=== PATIENT | female | born 1975 | race Caucasian/White ===

== ENCOUNTER → 2016-10-02 | Outpatient (CLI) | payer BC ==
--- NOTE | 2016-10-06 14:41 | MM ---
Reason for exam: screening (asymptomatic). Last mammogram was performed 6 months ago. History: Family history of breast cancer in sister. Benign US biopsy breast VAD RT of the right breast, October 11, 2015. Benign US LT VAD breast biopsy of the left breast, August 31, 2013. Took hormonal contraceptives for 3 years beginning at age 16. Physical Findings: A clinical breast exam by your physician is recommended on an annual basis and results should be correlated with mammographic findings. MG 3D Screening Mammo W/Cad Bilateral CC and MLO view(s) were taken. Prior study comparison: April 13, 2016, right breast MG 3d diag mammo w/cad RT. September 30, 2015, bilateral MG 3d screening mammo w/cad. The breast tissue is extremely dense which could obscure a lesion on mammography. Previous mammotome biopsy within the right and laft breast. No significant changes when compared with prior studies. ASSESSMENT: Benign, BI-RAD 2 RECOMMENDATION: Routine screening mammogram of both breasts in 1 year.
== END | disposition home or self-care (01) ==
LOC: RADMAMWWP 13:13
PROVIDERS: ATTEND Obstetrics & Gynecology
DX: Z12.31 Encounter for screening mammogram for malignant neoplasm of breast (principal); Z80.3 Family history of malignant neoplasm of breast
CPT/HCPCS: 77063; G0202

== ENCOUNTER 2017-01-18 18:12 | Observation (INO) | payer BC ==
[2017-01-18 18:34] VITALS: RESP 16
[2017-01-18] MEDS ORDERED: NITROGLYCERIN OINT 1 INCH/GM PACKET TOPICAL STA (19:12)
[2017-01-18] MEDS ORDERED: ASPIRIN 81 MG PO STA (19:12)
--- NOTE | 2017-01-18 19:16 | ED ---
Chest Pain HPI - General Chief Complaint: Chest Pain Stated Complaint: CHEST PAIN Time Seen by Provider: 01/18/17 19:01 Source: patient Mode of arrival: wheelchair Limitations: no limitations - History of Present Illness Initial Comments: This 41-year-old white female presents with a complaint of some left sided lower chest pain which started this morning. It then moved into the midsternal region. It is described more as a sharp pain. This afternoon she developed some dizziness as well as some left arm numbness. She denies any shortness of breath. She denies any history of cardiac disease. She apparently has a remote history of a stress test. She denies any history of DVT or PE. She was working out last week and developed some pain behind her left knee and is following up with orthopedics for this. She denies any calf pain or swelling. No other complaints or modifying factors. She denies any possibility of as she's had a tubal ligation. - Related Data Home Medications Medication Instructions Recorded Confirmed Lansoprazole [Prevacid] 30 mg PO DAILY 03/21/14 01/18/17 Simvastatin [Zocor] 80 mg PO HS 03/21/14 01/18/17 ALPRAZolam [Xanax] 0.25 mg PO DAILY PRN 01/18/17 01/18/17 Hydrochlorothiazide [Hydrodiuril] 25 mg PO DAILY 01/18/17 01/18/17 Lisinopril [Zestril] 5 mg PO DAILY 01/18/17 01/18/17 Zolpidem Tartrate [Ambien] 10 mg PO HS 01/18/17 01/18/17 Allergies Allergy/AdvReac Type Severity Reaction Status Date / Time Sulfa (Sulfonamide Allergy Rash/Hives Verified 01/18/17 19:22 Antibiotics) bupropion HCl AdvReac Altered Verified 01/18/17 19:22 [From Wellbutrin] Mental Status Review of Systems ROS Statement: Those systems with pertinent positive or pertinent negative responses have been documented in the HPI. ROS Other: All systems not noted in ROS Statement are negative. Past Medical History Past Medical History: No Reported History, Hyperlipidemia, Hypertension Additional Past Medical History / Comment(s): KIDNEY STONES; History of Any Multi-Drug Resistant Organisms: None Reported Past Surgical History: Appendectomy, Section, Hernia Repair Additional Past Surgical History / Comment(s): gastric bypass, (R) ankle ORIF. Past Psychological History: Depression Smoking Status: Never smoker Past Alcohol Use History: Occasional Past Drug Use History: None Reported General Exam - General Exam Comments Initial Comments: GENERAL: The patient is well nourished and well hydrated. VITAL SIGNS: Heart rate, blood pressure, respiratory rate reviewed as recorded in nurse's notes. EYES: Pupils are round and reactive. Extraocular movements are intact. No conjunctival / lid redness or swelling. ENT: No external evidence of injury, swelling, or ecchymosis. Airway is patent. Throat is clear. NECK: Nontender. No swelling or evidence of injury. No subcutaneous emphysema. Trachea is midline. No thyroid mass. HEART: Regular rate and rhythm. Good peripheral pulses. No reproducible chest tenderness. LUNGS/CHEST: Breath sounds clear and equal bilaterally. No rales, rhonchi, or wheezes. No ecchymosis, subcutaneous emphysema, or tenderness. ABDOMEN: Abdomen soft without tenderness. No palpable masses or organomegaly. No peritoneal signs. No abdominal wall swelling or ecchymosis. EXTREMITIES: There is some mild tenderness noted to the medial aspect of the left knee. There is a positive Nazanin sign. Normal muscle tone and function. No thoracolumbar tenderness. NEUROLOGIC: Sensation is grossly intact. Cranial nerve exam reveals face is symmetrical, tongue is midline, speech is clear. SKIN: No abrasions or ecchymosis is noted. No induration or masses noted. PSYCHIATRIC: Alert and oriented. Appropriate behavior and judgment. Limitations: no limitations Course Vital Signs 01/18/17 01/18/17 01/18/17 18:29 19:30 20:30 Temperature 99.3 F Pulse Rate 72 74 70 Respiratory 16 16 16 Rate Blood Pressure 135/79 115/77 126/71 O2 Sat by Pulse 98 97 95 Oximetry Chest Pain MDM - MDM The patient was seen and examined. All diagnostics were reviewed. EKG shows a normal sinus rhythm at a rate of [address]-T wave changes noted. The [place] interval is 140, QRS duration is 72, and the QTc interval is 435. The patient receives aspirin as well as Nitropaste. The laboratory was unremarkable except for an elevation of the d-dimer. The chest x-ray does not show any acute processes. A CT angiogram of the chest was done and this does not show any evidence of pulmonary embolism. On recheck, she is requesting a Doppler of her left lower extremity to rule out any possibility of DVT. This is ordered and is pending. Overall, it is felt as though she likely has more of a meniscal injury to her left knee than a DVT. Case is discussed with Charlene with internal medicine and patient will be admitted to the hospital for further Cardiologic workup to rule out acute coronary syndrome. Disposition Clinical Impression: Chest pain, Left knee pain Disposition: ADMITTED IP TO THIS [facility] Condition: Good Referrals: Marce Wiley MD [Primary Care Provider] - 1-2 days Time of Disposition: 21:36 Decision Date: 01/18/17 Decision Time: 21:36
[2017-01-18 19:31] LABS: Basophils % (A) 0 %; CH 31.5; CHCM 34.2; Eosinophils # (A) 0.1 k/uL (0-0.7); Eosinophils % (A) 1 %; HCT 43.6 % (34.0-46.0); HDW 2.42; HGB 14.8 gm/dL (11.4-16.0); Luc # (Auto) 0.14; Luc % (Auto) 2; Lymphocytes % (A) 25 %; MCH 31.4 pg (25.0-35.0); MCHC 33.9 g/dL (31.0-37.0); MCV 92.4 fL (80.0-100.0); Monocytes # (A) 0.5 k/uL (0-1.0); Monocytes % (A) 5 %; Neutrophils # (A) 5.5 k/uL (1.3-7.7); Neutrophils % (A) 67 %; RBC 4.71 m/uL (3.80-5.40); RDW 12.4 % (11.5-15.5); WBC 8.3 k/uL (3.8-10.6); WBC (Perox) 8.15
[2017-01-18 19:40] LABS: ALT 22 U/L (9-52); AST 25 U/L (14-36); Alkaline Phosphatase 76 U/L (38-126); Anion Gap 10 mmol/L; Blood Urea Nitrogen 22 mg/dL (7-17); Calcium 9.3 mg/dL (8.4-10.2); Carbon Dioxide 24 mmol/L (22-30); Chloride 104 mmol/L (98-107); Glucose 95 mg/dL (74-99); Non-African American GFR(MDRD) >60 (>60 ml/min/1.73 sqM); Potassium 4.2 mmol/L (3.5-5.1); Sodium 138 mmol/L (137-145); Total Bilirubin 0.4 mg/dL (0.2-1.3); Total Protein 7.2 g/dL (6.3-8.2)
[2017-01-18 19:45] LABS: Partial Thromboplastin Time 22.8 sec (22.0-30.0); Prothrombin Time 10.4 sec (9.0-12.0)
[2017-01-18 19:54] LABS: Creatine Kinase 51 U/L (30-135)
--- NOTE | 2017-01-18 19:58 | XR ---
EXAMINATION TYPE: XR chest 2V DATE OF EXAM: 01/18/2017 COMPARISON: 11/17/2012 HISTORY: Chest pain TECHNIQUE: Frontal and lateral views of the chest are obtained. FINDINGS: Heart and mediastinum are normal. Lungs are clear. Diaphragm is normal. Bony thorax is int act. There are chest leads. IMPRESSION: Normal chest. No change.
[2017-01-18 20:07] LABS: Creatine Kinase MB <0.2 ng/mL (0.0-2.4); Troponin I <0.012 ng/mL (0.000-0.034)
[2017-01-18] MEDS ORDERED: RX INFO: IV CONTRAST WAS GIVEN 1 EACH MISC MISCELLANE PRN (20:17)
--- NOTE | 2017-01-18 21:24 | CT ---
EXAMINATION TYPE: CT angio chest DATE OF EXAM: 01/18/2017 8:54 PM COMPARISON: NONE HISTORY: Chest pain and dizziness. CT DLP: 249.9 mGycm Automated exposure control for dose reduction was used. CONTRAST: CTA scan of the thorax is performed with IV Contrast, patient injected with 60 mL of Omnipaque 350, p ulmonary embolism protocol. There are 3-D post processed images.. FINDINGS: The lungs are clear of consolidation. There is no evidence of a pulmonary mass. Heart appears borderl ine enlarged. There is no pleural effusion. There is no pericardial effusion. There is a hiatal herni a noted. I see no filling defects in the pulmonary arteries. There are no hilar masses. There is no mediastina l adenopathy. The bony thorax is intact. Thoracic aorta is intact. There is no evidence of aneurysm o r dissection. IMPRESSION: NEGATIVE CT ANGIOGRAM OF THE CHEST. NO EVIDENCE OF PULMONARY EMBOLISM.
[2017-01-18] MEDS ORDERED: NITROGLYCERIN SL TABS 0.4 MG TAB SUBLINGUAL PRN (21:40)
[2017-01-18] MEDS ORDERED: MORPHINE SULFATE 2 MG/ML SYRINGE IVP PRN (21:40)
[2017-01-18] MEDS ORDERED: ACETAMINOPHEN TAB 325 MG TAB PO PRN (21:40)
[2017-01-18] MEDS ORDERED: ALPRAZolam 0.25 MG TAB PO PRN (21:43)
[2017-01-18 22:55] VITALS: BMI 30.7
[2017-01-18] MEDS ORDERED: ZOLPIDEM 10 MG TAB PO SCH (23:01)
[2017-01-19 01:07] LABS: Creatine Kinase 47 U/L (30-135)
[2017-01-19 01:20] LABS: Creatine Kinase MB <0.2 ng/mL (0.0-2.4); Troponin I <0.012 ng/mL (0.000-0.034)
[2017-01-19] MEDS: NITROGLYCERIN OINT 1 INCH/GM PACKET TOPICAL SCH ×3 (04:31→14:45)
[2017-01-19] MEDS ORDERED: PANTOPRAZOLE 40 MG TABLET PO SCH (07:30)
[2017-01-19 07:53] LABS: Cholesterol 222 mg/dL (<200); HDL Cholesterol 58 mg/dL (40-60)
[2017-01-19 08:08] LABS: Creatine Kinase 45 U/L (30-135)
[2017-01-19 08:21] LABS: Creatine Kinase MB <0.2 ng/mL (0.0-2.4); Troponin I <0.012 ng/mL (0.000-0.034)
[2017-01-19] MEDS ORDERED: ENOXAPARIN 40 MG/0.4 ML SYRINGE SQ SCH (09:00)
[2017-01-19] MEDS ORDERED: LISINOPRIL 5 MG TAB PO SCH (09:00)
[2017-01-19] MEDS ORDERED: ASPIRIN 325 MG TAB PO SCH (09:00)
[2017-01-19] MEDS ORDERED: HYDROCHLOROTHIAZIDE 25 MG TAB PO SCH (09:00)
--- NOTE | 2017-01-19 09:07 | US ---
EXAMINATION TYPE: US venous doppler duplex LE LT DATE OF EXAM: 01/19/2017 8:46 AM COMPARISON: NONE CLINICAL HISTORY: Pain. SIDE PERFORMED: Left TECHNIQUE: The lower extremity deep venous system is examined utilizing real time linear array sonog denise with graded compression, doppler sonography and color-flow sonography. VESSELS IMAGED: External Iliac Vein (EIV) Common Femoral Vein Deep Femoral Vein Greater Saphenous Vein * Femoral Vein Popliteal Vein Small Saphenous Vein * Proximal Calf Veins (* superficial vessels) Grayscale, color doppler, spectral doppler imaging performed of the deep veins of the left lower extr emity. There is normal flow, compressibility, vascular waveforms. Left Leg: Negative for DVT IMPRESSION: No ultrasound evidence for acute DVT in the left lower extremity.
--- NOTE | 2017-01-19 09:42 | CONS ---
CONSULTATION A 41-year-old lady with a history of hypertension and hypercholesterolemia who takes simvastatin and lisinopril at home and also has some gastroesophageal reflux disease and takes Prevacid. 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 She is fairly active. Has had a previous ankle surgery and she does not do much cardio but does quite a bit of weight and is physically very active. She has developed some pain in her left knee and so she slowed down her exercise process. She came into the hospital mainly with complaints of left lateral lower chest wall pain, somewhat pleuritic in nature associated with some numbness in the left upper extremity as well. Her chest wall pain seemed to occur in the left lateral area about 2 to 3 days before she came in and again the day before arrival she had midsternal sharp pain as well. Then she felt some numbness in the left arm. The quality of all her pain seems very atypical, not suggestive of angina. However after arrival she had a elevated D-dimer. She went down to have a CT angio which was unremarkable for a pulmonary embolism. She is resting comfortably without symptoms. Her blood pressure is good. She is asymptomatic. She has no chest pain, shortness of breath or palpitation at the time of my evaluation. She has no tenderness either. PAST MEDICAL HISTORY: 1. Hypertension. 2. Hypercholesterolemia. 3. History of some ankle injury and sees Dr. Pena from an orthopedic standpoint. 4. She has history of renal stones. 5. She has history of appendectomy, , tubal ligation, hernia repair, and gastric bypass/sleeve operation. 6. Right ankle had an injury and she had an open reduction internal fixation of that as well. SOCIAL HISTORY: Patient is not a smoker. Does not consume alcohol on a regular basis. ALLERGIES: She is allergic to SULFA. MEDICATIONS: She takes simvastatin 80 mg daily, Prevacid 30 mg daily, hydrochlorothiazide 25 mg daily, lisinopril 5 mg daily and Ambien p.r.n. EKG revealed a sinus mechanism, no acute changes. LABORATORY DATA: Laboratory data revealed unremarkable troponins. D-dimer is elevated. PHYSICAL EXAMINATION: On examination, blood pressure is 110/70, pulse rate 70 per minute, regular. HEENT: Unremarkable. Fundus was not examined by me. NECK: Supple. No JVD. I do not hear carotid bruits. There is no thyromegaly. Heart exam reveals S1, S2 heard normally. No rub, murmur or gallop. Lungs are clear. ABDOMEN: Soft, nontender. Lower extremities reveal normal pulses. No edema. Central nervous system is normal. EKG revealed sinus mechanism, no acute changes. IMPRESSION: 1. Atypical chest pain. 2. Elevated D-dimer of unclear etiology. 3. Hypertension. 4. Hypercholesterolemia. 5. No evidence clinically to suggest deep venous thrombosis. RECOMMENDATIONS: Patient's CT angiography was negative for pulmonary embolism. I am recommending a venous Doppler and if this is normal, a stress echo and if the stress echo is normal she can be discharged. I discussed my thoughts in detail with the patient. Thank you very much for the consult. MMODL / IJN: [id number] /
--- NOTE | 2017-01-19 10:06 | ECHOF ---
Referral Reason:cp MEASUREMENTS -------- HEIGHT: 127.0 cm WEIGHT: 68.9 kg BP: 108/56 RVIDd: 2.7 cm (< 3.3) IVSd: 1.0 cm (0.6 - 1.1) LVIDd: 3.0 cm (3.9 - 5.3) LVPWd: 1.1 cm (0.6 - 1.1) IVSs: 1.2 cm LVIDs: 2.5 cm LVPWs: 1.5 cm LA Diam: 2.7 cm (2.7 - 3.8) LAESV Index (A-L): 29.96 ml/m Ao Diam: 2.5 cm (2.0 - 3.7) AV Cusp: 1.5 cm (1.5 - 2.6) LA Diam: 2.9 cm (2.7 - 3.8) MV EXCURSION: 16.074 mm (> 18.000) MV EF SLOPE: 76 mm/s (70 - 150) EPSS: 0.2 cm MV E Bal: 0.91 m/s MV DecT: 198 ms MV A Bal: 0.96 m/s MV E/A Ratio: 0.95 RAP: 5.00 mmHg RVSP: 19.32 mmHg FINDINGS -------- Sinus rhythm. This was a technically adequate study. LV size, wall thickness and systolic function are normal, with an EF greater than 55%. The left ventricular size is normal. The right ventricle is normal in size. LA is midly dilated 29-33ml/m2. The right atrial size is normal. There is mild aortic valve sclerosis. There is no evidence of aortic regurgitation. Mild mitral regurgitation is present. Mild tricuspid regurgitation present. There is no evidence of pulmonary hypertension. The right ventricular systolic pressure, as measured by Doppler, is 19.32mmHg. There is no pulmonic regurgitation present. The aortic root size is normal. There is no pericardial effusion. CONCLUSIONS -------- 1. LV size, wall thickness and systolic function are normal, with an EF greater than 55%. 2. The aortic root size is normal. 3. There is no pericardial effusion. 4. The left ventricular size is normal. 5. LA is midly dilated 29-33ml/m2. 6. There is mild aortic valve sclerosis. 7. Mild mitral regurgitation is present. 8. Mild tricuspid regurgitation present. 9. There is no evidence of pulmonary hypertension. 10. The right ventricular systolic pressure, as measured by Doppler, is 19.32mmHg. 11. There is no pulmonic regurgitation present. EXTERNAL RELATIONS MANAGER: Bella Palacios RDCS
[2017-01-19 14:12] VITALS: BP 100/61; PULSE 68; TEMP 98
--- NOTE | 2017-01-19 16:39 | ECHOS ---
STRESS ECHOCARDIOGRAM DATE OF PROCEDURE: 01/19/2017 INDICATIONS: Chest pain MEDICATIONS:: BASELINE HEART RATE: 89 BASELINE BLOOD PRESSURE: 128/79 MAXIMUM HEART RATE: 164 MAXIMUM BLOOD PRESSURE: 164/54 85% MPHR: 152 100% MPHR: 179 METS: 11.1 MAXIMUM STAGE REACHED: 4 TOTAL EXERCISE TIME: 9-1/2 minutes Baseline EKG revealed a normal sinus rhythm without significant ST-T changes. Patient walked on a standard [place] protocol for a total duration of 9-1/2 minutes, achieved a maximal heart rate of 164 beats per minute, well above 85% of her predicted maximal heart rate. She developed fatigue and shortness of breath but did not have any angina or dyspnea. EKG did not reveal any ST-segment changes to indicate ischemia. By EKG criteria, this is a negative stress test with good exercise capacity. There was no angina or arrhythmia. Baseline echo images revealed normal wall motion and wall thickening of all segments. At peak exercise, the echo images were obtained, but by the time the images were actually captured the heart rate came down to 112 beats per minute. However, there was good contractility involving all segments and there is no evidence to suggest any stress-induced ischemia on this study. Even though images were obtained a little bit late, I believe this is a negative stress echocardiogram with good exercise capacity. FINAL IMPRESSION: 1. Good exercise capacity with a negative stress test by EKG criteria. 2. Normal stress echocardiogram, but images were obtained when the heart rate was slightly lower. There is no evidence of ischemia. MMODL / IJN: [id number] /
[2017-01-19] MEDS ORDERED: ATORVASTATIN 40 MG TAB PO SCH (21:00)
[2017-01-19] MEDS ORDERED: ZOLPIDEM 10 MG TAB PO SCH (21:00)
--- NOTE | 2017-01-20 15:35 | P.HPIM ---
History of Present Illness H&P Date: 01/19/17 Patient is a 41-year-old female came in with compensative chest pain with a pleuritic competent lasted for a few hours, after excessive workout. Patient underwent excess workup with the repeat troponins and EKG which are negative patient underwent stress test which was negative. Patient had minimally elevated d-dimer because of which patient underwent the CT angios the chest rule out pulmonary embolism patient does not have any pneumonia or any ID dissection at this point of time. Patient will be discharged. Patient takes to antidepressant medications patient blood pressure is on the low normal side with systolics being 100 because of which patient can get an recent new one of the anti-of his medications. Patient's LDL is 145 at counseling was provided patient will continue her same dose of statin at home. Which is 80 mg of simvastatin Review of Systems REVIEW OF SYSTEMS: CONSTITUTIONAL: No fever, no malaise, no fatigue. HEENT: No recent visual problems or hearing problems. Denied any sore throat. CARDIOVASCULAR: No orthopnea, PND, no palpitations, no syncope. PULMONARY: No shortness of breath, no cough, no hemoptysis. GASTROINTESTINAL: No diarrhea, no nausea, no vomiting, no abdominal pain. Normoactive bowel sounds. NEUROLOGICAL: No headaches, no weakness, no numbness. HEMATOLOGICAL: Denies any bleeding or petechiae. GENITOURINARY: Denies any burning micturition, frequency, or urgency. MUSCULOSKELETAL/RHEUMATOLOGICAL: Denies any joint pain, swelling, or any muscle pain. ENDOCRINE: Denies any polyuria or polydipsia. The rest of the 14-point review of systems is negative. Past Medical History Past Medical History: No Reported History, Hyperlipidemia, Hypertension Additional Past Medical History / Comment(s): KIDNEY STONES; History of Any Multi-Drug Resistant Organisms: None Reported Past Surgical History: Appendectomy, Section, Hernia Repair Additional Past Surgical History / Comment(s): gastric bypass, (R) ankle ORIF, ( R)knee orthroscopy. Past Anesthesia/Blood Transfusion Reactions: No Reported Reaction Past Psychological History: Depression Smoking Status: Never smoker Past Alcohol Use History: Occasional Past Drug Use History: None Reported Medications and Allergies Home Medications Medication Instructions Recorded Confirmed Type Lansoprazole [Prevacid] 30 mg PO DAILY 03/21/14 01/18/17 History Simvastatin [Zocor] 80 mg PO HS 03/21/14 01/18/17 History ALPRAZolam [Xanax] 0.25 mg PO DAILY PRN 01/18/17 01/18/17 History Hydrochlorothiazide [Hydrodiuril] 25 mg PO DAILY 01/18/17 01/18/17 History Lisinopril [Zestril] 5 mg PO DAILY 01/18/17 01/18/17 History Zolpidem Tartrate [Ambien] 10 mg PO HS 01/18/17 01/18/17 History Allergies Allergy/AdvReac Type Severity Reaction Status Date / Time Sulfa (Sulfonamide Allergy Rash/Hives Verified 01/18/17 19:22 Antibiotics) bupropion HCl AdvReac Altered Verified 01/18/17 19:22 [From Wellbutrin] Mental Status Physical Exam PHYSICAL EXAMINATION: GENERAL: The patient is alert and oriented x3, not in any acute distress. Well developed, well nourished. HEENT: Pupils are round and equally reacting to light. EOMI. No scleral icterus. No conjunctival pallor. Normocephalic, atraumatic. No pharyngeal erythema. No thyromegaly. CARDIOVASCULAR: S1 and S2 present. No murmurs, rubs, or gallops. PULMONARY: Chest is clear to auscultation, no wheezing or crackles. ABDOMEN: Soft, nontender, nondistended, normoactive bowel sounds. No palpable organomegaly. MUSCULOSKELETAL: No joint swelling or deformity. EXTREMITIES: No cyanosis, clubbing, or pedal edema. NEUROLOGICAL: Gross neurological examination did not reveal any focal deficits. SKIN: No rashes. Results CBC & Chem 7: 01/18/17 19:00 01/18/17 19:00 Thrombosis Risk Factor Assmnt - Choose All That Apply Each Factor Represents 1 point: Age 41-60 years Thrombosis Risk Factor Assessment Total Risk Factor Score: 1 Thrombosis Risk Factor Assessment Level: Low Risk Assessment and Plan Plan: #1 chest pain: Rule out acute coronary syndromes, patient underwent stress test which was negative. Rule out pulmonary embolism. #2 hyperlipidemia: Continue statin and 80 management as mentioned above #3 hypertension management as mentioned in the history. #4 rule out DVT
--- NOTE | 2017-01-20 15:36 | P.DS ---
Providers Date of admission: 01/18/17 21:41 Attending physician: Annabel Fischer Consults: 01/18/17 21:41 Consult Physician Urgent Consulting Provider: Negrito Wheat Consult Reason/Comments: cp Do you want consulting provider notified?: Yes Primary care physician: Marce Wiley [facility] Course: Please refer to [facility] for further details Patient Condition at Discharge: Good Plan - Discharge Summary New Discharge Prescriptions: No Action Simvastatin [Zocor] 80 mg PO HS Lansoprazole [Prevacid] 30 mg PO DAILY Zolpidem Tartrate [Ambien] 10 mg PO HS Lisinopril [Zestril] 5 mg PO DAILY Hydrochlorothiazide [Hydrodiuril] 25 mg PO DAILY ALPRAZolam [Xanax] 0.25 mg PO DAILY PRN PRN Reason: Anxiety Discharge Medication List Lansoprazole [Prevacid] 30 mg PO DAILY 03/21/14 [History] Simvastatin [Zocor] 80 mg PO HS 03/21/14 [History] ALPRAZolam [Xanax] 0.25 mg PO DAILY PRN 01/18/17 [History] Hydrochlorothiazide [Hydrodiuril] 25 mg PO DAILY 01/18/17 [History] Lisinopril [Zestril] 5 mg PO DAILY 01/18/17 [History] Zolpidem Tartrate [Ambien] 10 mg PO HS 01/18/17 [History] Follow up Appointment(s)/Referral(s): Yasmin Cruz MD [STAFF PHYSICIAN] - 2 Weeks Marce Wiley MD [Primary Care Provider] - 1-2 days Patient Instructions/Handouts: Chest Pain (GEN) Discharge Disposition: HOME SELF-CARE
== END 2017-01-19 14:55 | disposition home or self-care (01) ==
LOC: EC 18:12 → 3OBS 21:41
PROVIDERS: ADMIT Hospitalist; ATTEND Hospitalist
DX: R07.89 Other chest pain (principal); E78.5 Hyperlipidemia, unspecified; R42 Dizziness and giddiness; R20.0 Anesthesia of skin; R79.89 Other specified abnormal findings of blood chemistry; I10 Essential (primary) hypertension; M25.562 Pain in left knee; K21.9 Gastro-esophageal reflux disease without esophagitis; E78.00 Pure hypercholesterolemia, unspecified; Z98.84 Bariatric surgery status; F32.9 Major depressive disorder, single episode, unspecified; Z79.899 Other long term (current) drug therapy; Z88.8 Allergy status to other drugs, medicaments and biological substances; Z88.2 Allergy status to sulfonamides; Z87.442 Personal history of urinary calculi; Z90.49 Acquired absence of other specified parts of digestive tract
CPT/HCPCS: 99285; 36415; 93005; 93017; 93306; 93350; 85379; 80061; 80053; 82550 ×2; 82553 ×2; 83735; 84484 ×2; 85025; 85610; 85730; 71020; 93971; 71275; G0378 ×2; Q9967

== ENCOUNTER 2017-05-10 15:00 | Emergency (ER) | payer BC ==
[2017-05-10 15:22] VITALS: RESP 16
[2017-05-10] MEDS ORDERED: SODIUM CHLORIDE 0.9% 1,000 ML IV ONE (15:38)
[2017-05-10] MEDS ORDERED: RX INFO: IV CONTRAST WAS GIVEN 1 EACH MISC MISCELLANE PRN (15:38)
[2017-05-10] MEDS ORDERED: MORPHINE SULFATE 5 MG/ML SYRINGE IVP STA (16:10)
[2017-05-10 16:11] LABS: Basophils % (A) 0 %; Eosinophils # (A) 0.1 k/uL (0-0.7); Eosinophils % (A) 2 %; HCT 41.8 % (34.0-46.0); HGB 13.7 gm/dL (11.4-16.0); Lymphocytes % (A) 29 %; MCH 30.5 pg (25.0-35.0); MCHC 32.7 g/dL (31.0-37.0); MCV 93.2 fL (80.0-100.0); Mean Platelet Volume 6.9; Monocytes # (A) 0.3 k/uL (0-1.0); Monocytes % (A) 4 %; Neutrophils # (A) 4.4 k/uL (1.3-7.7); Neutrophils % (A) 63 %; Platelet Count 353 k/uL (150-450); RBC 4.48 m/uL (3.80-5.40); RDW 12.1 % (11.5-15.5)
[2017-05-10 16:16] LABS: Amorphous Sediment,Urine Rare /hpf; Appearance,Urine Cloudy (Clear); Bilirubin,Urine Negative (Negative); Blood,Urine Negative (Negative); Color,Urine Yellow; Glucose,Urine (UA) Negative (Negative); Ketones,Urine Negative (Negative); Leukocyte Esterase,Urine Trace (Negative); Mucus,Urine Rare /hpf; Nitrite,Urine Negative (Negative); PH, Urine 7.5 (5.0-8.0); Protein,Urine Negative (Negative); Specific Gravity,Urine 1.017 (1.001-1.035); Squamous Epithelial Cell,Urine 2 /hpf (0-4); Urobilinogen,Urine <2.0 mg/dL (<2.0); WBC,Urine 4 /hpf (0-5)
[2017-05-10 16:20] LABS: Anion Gap 10 mmol/L; Blood Urea Nitrogen 22 mg/dL (7-17); Calcium 9.8 mg/dL (8.4-10.2); Carbon Dioxide 26 mmol/L (22-30); Chloride 105 mmol/L (98-107); Glucose 91 mg/dL (74-99); Potassium 4.2 mmol/L (3.5-5.1); Sodium 141 mmol/L (137-145)
--- NOTE | 2017-05-10 16:50 | ED ---
General Adult HPI - General Chief complaint: Abdominal Pain Stated complaint: Abd Pain Time Seen by Provider: 05/10/17 15:38 Source: patient Mode of arrival: ambulatory Limitations: no limitations - History of Present Illness Initial comments: Mame is a 42-year-old female with no significant past medical history who presents to the emergency department today for evaluation of left lower quadrant pain for 5 days duration. Patient reports that last week she was doing some housework when she developed pain in her left lower quadrant. She reports the pain has been persistent since that time, she works as a nurse at an outside emergency Department reports that the pain is worse while she is working. Patient describes the pain as a tearing or pulling sensation. She reports that she usually works out pretty regularly but has not been able to do so since the pain began. She has not noticed any bulging or swelling in the area does not believe she has a hernia. Patient has never seen a direct mail marketer in the past, she's never had a colonoscopy. She does report she suffers from episodes of constipation and diarrhea but has no formal diagnosis. She doesn't have any history of diverticulitis. She reports that she's been having regular bowel movements recently. She denies any nausea, vomiting, change in bladder habits or development of hematuria. She reports she has been taking Motrin, Tylenol and naproxen for the pain with minimal improvement. - Related Data Home Medications Medication Instructions Recorded Confirmed Lansoprazole [Prevacid] 30 mg PO DAILY 03/21/14 05/10/17 Simvastatin [Zocor] 80 mg PO HS 03/21/14 05/10/17 Hydrochlorothiazide [Hydrodiuril] 25 mg PO DAILY 01/18/17 05/10/17 Lisinopril [Zestril] 5 mg PO DAILY 01/18/17 05/10/17 Zolpidem Tartrate [Ambien] 10 mg PO HS 01/18/17 05/10/17 Allergies Allergy/AdvReac Type Severity Reaction Status Date / Time Sulfa (Sulfonamide Allergy Rash/Hives Verified 05/10/17 15:40 Antibiotics) bupropion HCl AdvReac Altered Verified 05/10/17 15:40 [From Wellbutrin] Mental Status Review of Systems ROS Statement: Those systems with pertinent positive or pertinent negative responses have been documented in the HPI. ROS Other: All systems not noted in ROS Statement are negative. Constitutional: Denies: fever ENT: Denies: throat pain Respiratory: Denies: cough, dyspnea Cardiovascular: Denies: chest pain, palpitations Endocrine: Denies: fatigue Gastrointestinal: Reports: abdominal pain, diarrhea, constipation. Denies: nausea, vomiting, melena, hematochezia Genitourinary: Denies: urgency, dysuria, hematuria Skin: Denies: rash Neurological: Denies: headache Psychiatric: Denies: anxiety, depression Hematological/Lymphatic: Denies: easy bleeding Past Medical History Past Medical History: Hyperlipidemia, Hypertension Additional Past Medical History / Comment(s): KIDNEY STONES; History of Any Multi-Drug Resistant Organisms: None Reported Past Surgical History: Appendectomy, Section, Hernia Repair, Uterine Ablation Additional Past Surgical History / Comment(s): gastric bypass, (R) ankle ORIF, ( R)knee orthroscopy. Past Anesthesia/Blood Transfusion Reactions: No Reported Reaction Past Psychological History: Depression Smoking Status: Never smoker Past Alcohol Use History: Occasional Past Drug Use History: None Reported General Exam Limitations: no limitations General appearance: alert, in no apparent distress Head exam: Present: atraumatic, normocephalic Eye exam: Present: normal appearance, PERRL ENT exam: Present: normal exam Neck exam: Present: normal inspection Respiratory exam: Present: normal lung sounds bilaterally. Absent: respiratory distress Cardiovascular Exam: Present: regular rate, normal rhythm GI/Abdominal exam: Present: soft, normal bowel sounds. Absent: distended, tenderness, guarding, rebound, rigid, diminished bowel sounds, hypoactive bowel sounds, organomegaly, mass, bruit, pulsatile mass, hernia Rectal exam: Present: deferred Extremities exam: Present: normal inspection, full ROM, normal capillary refill. Absent: tenderness, pedal edema, joint swelling, calf tenderness Back exam: Present: normal inspection Neurological exam: Present: alert, oriented X3 Psychiatric exam: Present: normal affect, normal mood Skin exam: Present: warm, dry, intact Course Vital Signs 05/10/17 05/10/17 05/10/17 15:20 16:18 18:25 Temperature 98.5 F 97.5 F L Pulse Rate 79 89 75 Respiratory 16 16 16 Rate Blood Pressure 137/69 104/61 100/55 O2 Sat by Pulse 98 97 100 Oximetry Medical Decision Making - Medical Decision Making Patient was seen and evaluated, history was obtained from patient Vital signs were reviewed, no Sirs criteria History and physical exam are concerning for possible abdominal wall strain versus diverticulitis. Patient does have irregular bowel movements however this is unchanged from her baseline she is having pain to palpation in the deep left lower quadrant. Physical exam reveals no hernias. At this time labs and computed tomography scan will be ordered. Labs unremarkable Computed tomography scan reveals no acute pathology in the left lower quadrant. Patient is noted to have a renal cyst which was present in 2012. This was discussed with the patient. Patient at this time I do believe that her pain is secondary to a muscle strain likely related to injury during cleaning to home. Advised her to contain rest for a few days, avoid heavy lifting or strenuous activity and a follow-up with her primary care physician. All questions pertaining to care were answered to the best of my ability and the patient was discharged home in stable condition. - Lab Data Result diagrams: 05/10/17 16:00 05/10/17 16:00 Lab Results 05/10/17 05/10/17 05/10/17 Range/Units 16:00 16:00 16:00 WBC 7.0 (3.8-10.6) k/uL RBC 4.48 (3.80-5.40) m/uL Hgb 13.7 (11.4-16.0) gm/dL Hct 41.8 (34.0-46.0) % MCV 93.2 (80.0-100.0) fL MCH 30.5 (25.0-35.0) pg MCHC 32.7 (31.0-37.0) g/dL RDW 12.1 (11.5-15.5) % Plt Count 353 (150-450) k/uL Neutrophils % 63 % Lymphocytes % 29 % Monocytes % 4 % Eosinophils % 2 % Basophils % 0 % Neutrophils # 4.4 (1.3-7.7) k/uL Lymphocytes # 2.0 (1.0-4.8) k/uL Monocytes # 0.3 (0-1.0) k/uL Eosinophils # 0.1 (0-0.7) k/uL Basophils # 0.0 (0-0.2) k/uL Sodium 141 (137-145) mmol/L Potassium 4.2 (3.5-5.1) mmol/L Chloride 105 (98-107) mmol/L Carbon Dioxide 26 (22-30) mmol/L Anion Gap 10 mmol/L BUN 22 H (7-17) mg/dL Creatinine 0.85 (0.52-1.04) mg/dL Est GFR (MDRD) Af Amer >60 (>60 ml/min/1.73 sqM) Est GFR (MDRD) Non-Af >60 (>60 ml/min/1.73 sqM) Glucose 91 (74-99) mg/dL Calcium 9.8 (8.4-10.2) mg/dL Urine Color Yellow Urine Appearance Cloudy H (Clear) Urine pH 7.5 (5.0-8.0) Ur Specific [place] 1.017 (1.001-1.035) Urine Protein Negative (Negative) Urine Glucose (UA) Negative (Negative) Urine Ketones Negative (Negative) Urine Blood Negative (Negative) Urine Nitrite Negative (Negative) Urine Bilirubin Negative (Negative) Urine Urobilinogen <2.0 (<2.0) mg/dL Ur Leukocyte Esterase Trace H (Negative) Urine WBC 4 (0-5) /hpf Ur Squamous Epith Cells 2 (0-4) /hpf Amorphous Sediment Rare H (None) /hpf Urine Mucus Rare H (None) /hpf Disposition Clinical Impression: Abdominal wall strain, Renal mass Disposition: HOME SELF-CARE Condition: Good Instructions: Muscle Strain (ED) Referrals: Marce Wiley MD [Primary Care Provider] - 1-2 days Time of Disposition: 18:10
--- NOTE | 2017-05-10 17:53 | CT ---
EXAMINATION TYPE: CT abdomen pelvis w con DATE OF EXAM: 05/10/2017 COMPARISON: 03/21/2014 HISTORY: Generalized pain with vomiting CT DLP: 595.5 mGycm Automated exposure control for dose reduction was used. TECHNIQUE: Helical acquisition of images was performed from the lung bases through the pelvis. CONTRAST: Performed without Oral Contrast and with IV Contrast, patient injected with 100 mL of Omnipaque 300. FINDINGS: Lung bases are clear. There is no pleural effusion. There is a small hiatal hernia. There are surgica l clips around the stomach. Liver spleen pancreas and gallbladder appear normal. Bile ducts are not dilated. There is no adrenal mass. Kidneys show satisfactory contrast opacification. There is an 2 cm area of intermediate density on the lateral aspect of the right kidney. This could be a complex cyst. There are bilateral small r enal calcifications. There is no hydronephrosis. Ureters are not dilated. Bladder distends smoothly. There is no sign of a pelvic mass. Uterus is anteverted. There is a 2 cm a justice of increased density on the uterine fundus consistent with a fibroid. The bony structures are int act. There are some surgical clips in the right lower quadrant. Appendix is not seen. There is no sig n of appendicitis. I see no intestinal wall thickening. There are a few sigmoid diverticula. There is no evidence of diverticulitis. IMPRESSION: MULTIPLE BILATERAL NONOBSTRUCTING RENAL CALCULI. 2 CM COMPLEX AREA ON THE LATERAL RIGHT RENAL CORTEX IN RETROSPECT IS INCREASED COMPARED TO CT SCAN OF 08/18/2012 AND THE POSSIBILITY OF A TUMOR SHOULD BE CONSIDERED. FOLLOW-UP IS RECOMMENDED.
[2017-05-10 18:28] VITALS: BP 100/55; PULSE 75; TEMP 97.5
== END 2017-05-10 18:25 | disposition home or self-care (01) ==
LOC: EC 15:00
DX: S39.011A Strain of muscle, fascia and tendon of abdomen, initial encounter (principal); N28.89 Other specified disorders of kidney and ureter; E78.5 Hyperlipidemia, unspecified; I10 Essential (primary) hypertension; F32.9 Major depressive disorder, single episode, unspecified; Z79.899 Other long term (current) drug therapy; Z88.2 Allergy status to sulfonamides; Z88.8 Allergy status to other drugs, medicaments and biological substances; Z98.890 Other specified postprocedural states
CPT/HCPCS: 36415; 80048; 85025; 81001; 74177; 99284; 96374; 96361 ×2; Q9967; J2274

== ENCOUNTER → 2017-05-28 | Outpatient (CLI) | payer BC ==
--- NOTE | 2017-05-28 15:58 | US ---
EXAMINATION TYPE: US kidneys/renal and bladder DATE OF EXAM: 05/28/2017 COMPARISON: CT dated 05/10/2017 CLINICAL HISTORY: R93.5 Abn findings on Diagnostic images. Renal tumor EXAM MEASUREMENTS: Right Kidney: 11.1 x 4.9 x 5.5 cm Left Kidney: 10.9 x 5.6 x 5.9 cm Right Kidney: soft tissue density laterally measures 2.8 x 2.4 x 2.1 cm that distorts contour of kidn ey. Left Kidney: several tiny echogenic foci that could represent stones. Bladder: wnl Bilateral Jets seen: Yes Grayscale, color Doppler imaging performed. The mass within the lateral aspect of the right kidney sh ows vascular appearance on color Doppler. IMPRESSION: Findings in the right kidney representing a solid tumor, could represent renal cell carcinoma within the right kidney. Nephrolithiasis.
== END | disposition home or self-care (01) ==
LOC: RADUSWWP 15:04
PROVIDERS: ATTEND Family Medicine
DX: N20.0 Calculus of kidney (principal)
CPT/HCPCS: 76770

== ENCOUNTER 2017-06-29 04:09 | Emergency (ER) | payer BC ==
--- NOTE | 2017-06-29 04:33 | ED ---
Abdominal Pain HPI - General Chief Complaint: Abdominal Pain Stated Complaint: kidney stone Time Seen by Provider: 06/29/17 04:20 Source: patient Mode of arrival: ambulatory Limitations: no limitations - History of Present Illness Initial Comments: This patient is a 42-year-old woman who has previous history kidney stone, who presents with complaint of lower abdominal pain. She indicates that the pain is across the entire low abdomen but worse in the suprapubic area. She describes it as a constant pain, bloating in character, mild in intensity. It had started Wednesday. On addition the patient states she seems to be having a decrease in urine output and that her urine is darker than usual. She did have some nausea and vomiting overnight on but has not had any since. She has not noted a change in bowel movements. MD Complaint: abdominal pain Onset/Timin -: days(s) Location: suprapubic Radiation: none Migration to: no migration Severity: mild Quality: other (Bloating) Consistency: constant Improves With: nothing Worsens With: nothing - Related Data Home Medications Medication Instructions Recorded Confirmed Lansoprazole [Prevacid] 30 mg PO DAILY 03/21/14 06/29/17 Simvastatin [Zocor] 80 mg PO HS 03/21/14 06/29/17 Hydrochlorothiazide [Hydrodiuril] 25 mg PO DAILY 01/18/17 06/29/17 Lisinopril [Zestril] 5 mg PO DAILY 01/18/17 06/29/17 Zolpidem Tartrate [Ambien] 10 mg PO HS 01/18/17 06/29/17 ALPRAZolam [Xanax] 0.25 mg PO DAILY PRN 06/18/17 06/29/17 Previous Rx's Medication Instructions Recorded Phenazopyridine [Pyridium] 100 mg PO TID #6 tablet 06/29/17 Allergies Allergy/AdvReac Type Severity Reaction Status Date / Time Sulfa (Sulfonamide Allergy Rash/Hives Verified 06/18/17 15:50 Antibiotics) bupropion HCl AdvReac Altered Verified 06/18/17 15:50 [From Wellbutrin] Mental Status Review of Systems ROS Statement: Those systems with pertinent positive or pertinent negative responses have been documented in the HPI. ROS Other: All systems not noted in ROS Statement are negative. Constitutional: Denies: fever, chills Respiratory: Denies: cough, dyspnea Cardiovascular: Denies: chest pain, palpitations, edema Gastrointestinal: Reports: as per HPI, abdominal pain. Denies: nausea, vomiting , diarrhea, constipation, melena, hematochezia Genitourinary: Reports: as per HPI, hematuria. Denies: urgency, dysuria, frequency, discharge Musculoskeletal: Denies: back pain Skin: Denies: rash Neurological: Denies: headache Past Medical History Past Medical History: Hyperlipidemia, Hypertension Additional Past Medical History / Comment(s): KIDNEY STONES; breast biopsy bilateral breast benign History of Any Multi-Drug Resistant Organisms: None Reported Past Surgical History: Appendectomy, Section, Hernia Repair, Uterine Ablation Additional Past Surgical History / Comment(s): gastric bypass, (R) ankle ORIF, ( R)knee orthroscopy. Past Anesthesia/Blood Transfusion Reactions: Postoperative Nausea & Vomiting ( PONV) Past Psychological History: Anxiety, Depression Smoking Status: Former smoker Past Alcohol Use History: Rare Past Drug Use History: None Reported - Past Family History Father Family Medical History: Cancer, Diabetes Mellitus General Exam Limitations: no limitations General appearance: alert, in no apparent distress Head exam: Present: atraumatic, normocephalic Eye exam: Present: normal appearance. Absent: scleral icterus, conjunctival injection Respiratory exam: Present: normal lung sounds bilaterally. Absent: respiratory distress, wheezes, rales, rhonchi, stridor Cardiovascular Exam: Present: regular rate, normal rhythm, normal heart sounds. Absent: systolic murmur, diastolic murmur, rubs, gallop GI/Abdominal exam: Present: soft, tenderness (There is very mild suprapubic tenderness without rebound or guarding). Absent: distended, guarding, rebound, rigid, organomegaly, mass, pulsatile mass Extremities exam: Present: normal inspection, normal capillary refill. Absent: pedal edema, calf tenderness Back exam: Present: normal inspection. Absent: CVA tenderness (R), CVA tenderness (L) Neurological exam: Present: alert Skin exam: Present: warm, dry, intact, normal color. Absent: rash Course Vital Signs 06/29/17 04:12 Temperature 98.5 F Pulse Rate 88 Respiratory 20 Rate Blood Pressure 133/87 O2 Sat by Pulse 98 Oximetry Medical Decision Making - Medical Decision Making Further history from the patient revealed that on Thursday she had had what sounds like an episode of gastroenteritis. She had 2-3 episodes each of vomiting and diarrhea. 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 We discussed that if she does not improve after finishing her course of Macrobid and after finishing her course of pretty much she should follow-up to have a stool specimen checked. And if these are not diagnostic then to consider following up with her stuffer. - Lab Data Result diagrams: 06/29/17 04:30 06/29/17 04:30 Lab Results 06/29/17 06/29/17 06/29/17 Range/Units 04:30 04:30 04:30 WBC 7.1 (3.8-10.6) k/uL RBC 4.59 (3.80-5.40) m/uL Hgb 13.7 (11.4-16.0) gm/dL Hct 41.4 (34.0-46.0) % MCV 90.2 (80.0-100.0) fL MCH 29.8 (25.0-35.0) pg MCHC 33.0 (31.0-37.0) g/dL RDW 12.2 (11.5-15.5) % Plt Count 363 (150-450) k/uL Neutrophils % 55 % Lymphocytes % 34 % Monocytes % 6 % Eosinophils % 2 % Basophils % 1 % Neutrophils # 3.9 (1.3-7.7) k/uL Lymphocytes # 2.4 (1.0-4.8) k/uL Monocytes # 0.4 (0-1.0) k/uL Eosinophils # 0.1 (0-0.7) k/uL Basophils # 0.1 (0-0.2) k/uL Sodium 142 (137-145) mmol/L Potassium 3.5 (3.5-5.1) mmol/L Chloride 104 (98-107) mmol/L Carbon Dioxide 25 (22-30) mmol/L Anion Gap 13 mmol/L BUN 18 H (7-17) mg/dL Creatinine 0.71 (0.52-1.04) mg/dL Est GFR (MDRD) Af Amer >60 (>60 ml/min/1.73 sqM) Est GFR (MDRD) Non-Af >60 (>60 ml/min/1.73 sqM) Glucose 104 H (74-99) mg/dL Calcium 9.7 (8.4-10.2) mg/dL Total Bilirubin 0.3 (0.2-1.3) mg/dL AST 27 (14-36) U/L ALT 20 (9-52) U/L Alkaline Phosphatase 87 (38-126) U/L Total Protein 7.0 (6.3-8.2) g/dL Albumin 4.0 (3.5-5.0) g/dL Amylase 33 (30-110) U/L Lipase 56 (23-300) U/L Urine Color Urine Appearance (Clear) Urine pH (5.0-8.0) Ur Specific [place] (1.001-1.035) Urine Protein (Negative) Urine Glucose (UA) (Negative) Urine Ketones (Negative) Urine Blood (Negative) Urine Nitrite (Negative) Urine Bilirubin (Negative) Urine Urobilinogen (<2.0) mg/dL Ur Leukocyte Esterase (Negative) Urine RBC (0-5) /hpf Urine WBC (0-5) /hpf Ur Squamous Epith Cells (0-4) /hpf Calcium Oxalate Crystal (None) /hpf Urine Bacteria (None) /hpf Urine Mucus (None) /hpf Urine HCG, Qual Not Detected (Not Detectd) 06/29/17 Range/Units 05:42 WBC (3.8-10.6) k/uL RBC (3.80-5.40) m/uL Hgb (11.4-16.0) gm/dL Hct (34.0-46.0) % MCV (80.0-100.0) fL MCH (25.0-35.0) pg MCHC (31.0-37.0) g/dL RDW (11.5-15.5) % Plt Count (150-450) k/uL Neutrophils % % Lymphocytes % % Monocytes % % Eosinophils % % Basophils % % Neutrophils # (1.3-7.7) k/uL Lymphocytes # (1.0-4.8) k/uL Monocytes # (0-1.0) k/uL Eosinophils # (0-0.7) k/uL Basophils # (0-0.2) k/uL Sodium (137-145) mmol/L Potassium (3.5-5.1) mmol/L Chloride (98-107) mmol/L Carbon Dioxide (22-30) mmol/L Anion Gap mmol/L BUN (7-17) mg/dL Creatinine (0.52-1.04) mg/dL Est GFR (MDRD) Af Amer (>60 ml/min/1.73 sqM) Est GFR (MDRD) Non-Af (>60 ml/min/1.73 sqM) Glucose (74-99) mg/dL Calcium (8.4-10.2) mg/dL Total Bilirubin (0.2-1.3) mg/dL AST (14-36) U/L ALT (9-52) U/L Alkaline Phosphatase (38-126) U/L Total Protein (6.3-8.2) g/dL Albumin (3.5-5.0) g/dL Amylase (30-110) U/L Lipase (23-300) U/L Urine Color Yellow Urine Appearance Cloudy H (Clear) Urine pH 6.5 (5.0-8.0) Ur Specific [place] 1.017 (1.001-1.035) Urine Protein Trace H (Negative) Urine Glucose (UA) Negative (Negative) Urine Ketones Negative (Negative) Urine Blood Negative (Negative) Urine Nitrite Negative (Negative) Urine Bilirubin Negative (Negative) Urine Urobilinogen 4.0 (<2.0) mg/dL Ur Leukocyte Esterase Negative (Negative) Urine RBC 2 (0-5) /hpf Urine WBC 3 (0-5) /hpf Ur Squamous Epith Cells 1 (0-4) /hpf Calcium Oxalate Crystal Occasional H (None) /hpf Urine Bacteria Moderate H (None) /hpf Urine Mucus Rare H (None) /hpf Urine HCG, Qual (Not Detectd) Disposition Clinical Impression: Abdominal pain Disposition: HOME SELF-CARE Condition: Good Instructions: Abdominal Pain (ED) Additional Instructions: As we discussed, if her symptoms do not improve within the next day to 2, follow -up to have a stool specimen sent to lab. Prescriptions: Phenazopyridine [Pyridium] 100 mg PO TID #6 tablet Referrals: None,Stated [Primary Care Provider] - 1-2 days
[2017-06-29 04:47] LABS: Basophils # (A) 0.1 k/uL (0-0.2); Basophils % (A) 1 %; Eosinophils # (A) 0.1 k/uL (0-0.7); Eosinophils % (A) 2 %; HCT 41.4 % (34.0-46.0); HGB 13.7 gm/dL (11.4-16.0); Lymphocytes # (A) 2.4 k/uL (1.0-4.8); Lymphocytes % (A) 34 %; MCH 29.8 pg (25.0-35.0); MCV 90.2 fL (80.0-100.0); Monocytes # (A) 0.4 k/uL (0-1.0); Monocytes % (A) 6 %; Neutrophils # (A) 3.9 k/uL (1.3-7.7); Neutrophils % (A) 55 %; Platelet Count 363 k/uL (150-450); RBC 4.59 m/uL (3.80-5.40); RDW 12.2 % (11.5-15.5); WBC 7.1 k/uL (3.8-10.6)
[2017-06-29] MEDS ORDERED: SODIUM CHLORIDE 0.9% 500 ML IV STA (04:50)
[2017-06-29 05:04] LABS: ALT 20 U/L (9-52); AST 27 U/L (14-36); Alkaline Phosphatase 87 U/L (38-126); Amylase 33 U/L (30-110); Anion Gap 13 mmol/L; Blood Urea Nitrogen 18 mg/dL (7-17); Calcium 9.7 mg/dL (8.4-10.2); Carbon Dioxide 25 mmol/L (22-30); Chloride 104 mmol/L (98-107); Glucose 104 mg/dL (74-99); Lipase 56 U/L (23-300); Potassium 3.5 mmol/L (3.5-5.1); Sodium 142 mmol/L (137-145); Total Bilirubin 0.3 mg/dL (0.2-1.3)
[2017-06-29 05:54] LABS: Appearance,Urine Cloudy (Clear); Bacteria,Urine Moderate /hpf; Bilirubin,Urine Negative (Negative); Blood,Urine Negative (Negative); Calcium Oxalate Crystals,Urine Occasional /hpf; Color,Urine Yellow; Glucose,Urine (UA) Negative (Negative); Ketones,Urine Negative (Negative); Leukocyte Esterase,Urine Negative (Negative); Mucus,Urine Rare /hpf; Nitrite,Urine Negative (Negative); PH, Urine 6.5 (5.0-8.0); Protein,Urine Trace (Negative); RBC,Urine 2 /hpf (0-5); Specific Gravity,Urine 1.017 (1.001-1.035); Squamous Epithelial Cell,Urine 1 /hpf (0-4); WBC,Urine 3 /hpf (0-5)
[2017-06-29] MEDS ORDERED: PHENAZOPYRIDINE 100 MG TAB PO STA (06:02)
[2017-06-29 06:18] VITALS: BP 132/75; PULSE 68; RESP 18; TEMP 97.2
== END 2017-06-29 06:16 | disposition home or self-care (01) ==
LOC: EC 04:09
DX: R10.30 Lower abdominal pain, unspecified (principal); R11.2 Nausea with vomiting, unspecified; R14.0 Abdominal distension (gaseous); R19.7 Diarrhea, unspecified; E78.5 Hyperlipidemia, unspecified; I10 Essential (primary) hypertension; F32.9 Major depressive disorder, single episode, unspecified; F41.9 Anxiety disorder, unspecified; Z87.891 Personal history of nicotine dependence; Z79.899 Other long term (current) drug therapy; Z88.2 Allergy status to sulfonamides; Z88.8 Allergy status to other drugs, medicaments and biological substances; Z90.49 Acquired absence of other specified parts of digestive tract
CPT/HCPCS: 36415; 80053; 81001; 81025; 82150; 83690; 85025; 99284

== ENCOUNTER 2017-06-30 08:50 | Day surgery (SDC) | payer BC ==
[2017-06-30 09:31] LABS: Mean Platelet Volume 6.8; Platelet Count 338 k/uL (150-450)
[2017-06-30 09:32] VITALS: TEMP 98.2
[2017-06-30] MEDS ORDERED: ALPRAZolam 0.5 MG TAB PO STA (09:32)
[2017-06-30] MEDS ORDERED: HYDROmorphone 2 MG TAB PO STA (10:35)
[2017-06-30 12:00] VITALS: BP 116/71; PULSE 74; RESP 16
--- NOTE | 2017-06-30 14:15 | CT ---
EXAMINATION TYPE: CT discontinued procedure DATE OF EXAM: 06/30/2017 COMPARISON: Prior CT 05/10/2017 HISTORY: Attempted renal biopsy-right CT DLP: 1506 mGycm Automated exposure control for dose reduction was used. FINDINGS: Attempts to localize the renal lesion were not repeatable. Breathing by the patient was inconsistent. Attempt to change position of the patient was unsuccessful, percutaneous access was not felt to be s afe. IMPRESSION: ABORTED BIOPSY DUE TO SAFETY CONCERNS, RISK-BENEFIT RATIO, case discussed with the patient and referr ing clinician.
== END 2017-06-30 11:15 | disposition home or self-care (01) ==
LOC: RADPROMAIN 08:50
PROVIDERS: ATTEND Urology
DX: D41.01 Neoplasm of uncertain behavior of right kidney (principal); Z53.8 Procedure and treatment not carried out for other reasons; Z88.2 Allergy status to sulfonamides
CPT/HCPCS: 36415; 76380; 77012; 85049; 85610

== ENCOUNTER → 2018-09-24 | Outpatient (CLI) | payer BC ==
[2018-09-24 12:18] LABS: Basophils % (A) 1 %; Eosinophils # (A) 0.1 k/uL (0-0.7); Eosinophils % (A) 2 %; HCT 41.7 % (34.0-46.0); HGB 13.6 gm/dL (11.4-16.0); Lymphocytes % (A) 38 %; MCH 29.9 pg (25.0-35.0); MCHC 32.6 g/dL (31.0-37.0); MCV 91.5 fL (80.0-100.0); Mean Platelet Volume 7.2; Monocytes # (A) 0.3 k/uL (0-1.0); Monocytes % (A) 4 %; Neutrophils # (A) 4.2 k/uL (1.3-7.7); Neutrophils % (A) 54 %; Platelet Count 368 k/uL (150-450); RBC 4.56 m/uL (3.80-5.40); RDW 13.7 % (11.5-15.5); WBC 7.9 k/uL (3.8-10.6)
[2018-09-24 17:39] LABS: Albumin 4.2 g/dL (3.80-4.90); Albumin/Globulin Ratio 1.83 (1.60-3.17); Anion Gap 7.2 mmol/L (4.00-12.00); Calcium 9.4 mg/dL (8.7-10.3); Carbon Dioxide 25.8 mmol/L (21.6-31.8); Globulin 2.3 g/dL (1.6-3.3); LDL Cholesterol,Calculated 143.8 mg/dL (0.0-131.0); Potassium 3.9 mmol/L (3.5-5.5); Total Bilirubin 0.4 mg/dL (0.3-1.2); Total Protein 6.5 g/dL (6.2-8.2); VLDL Calculation 16.2 mg/dL (5.00-40.00)
[2018-09-24 17:47] LABS: T4, Free (Free Thyroxine) 1.1 ng/dL (0.80-1.80)
== END | disposition home or self-care (01) ==
LOC: LABWHC1 11:42
PROVIDERS: ATTEND Physician Assistant
DX: Z51.81 Encounter for therapeutic drug level monitoring (principal); Z79.899 Other long term (current) drug therapy
CPT/HCPCS: 36415; 80053; 80061; 84439; 84443; 84481; 85025

== ENCOUNTER → 2018-12-30 | Outpatient (CLI) | payer BC ==
--- NOTE | 2019-01-02 10:18 | MM ---
Reason for exam: screening (asymptomatic). Last mammogram was performed 2 years and 3 months ago. History: Patient is postmenopausal and has history of other cancer at age 42. Family history of breast cancer in sister. Benign US biopsy breast VAD RT of the right breast, October 11, 2015. Benign US LT VAD breast biopsy of the left breast, August 31, 2013. Took hormonal contraceptives for 3 years beginning at age 16. Physical Findings: A clinical breast exam by your physician is recommended on an annual basis and results should be correlated with mammographic findings. MG 3D Screening Mammo W/Cad Bilateral CC and MLO view(s) were taken. Prior study comparison: October 02, 2016, bilateral MG 3d screening mammo w/cad. April 13, 2016, right breast MG 3d diag mammo w/cad RT. The breast tissue is extremely dense which could obscure a lesion on mammography. No suspicious abnormality. Bilateral biopsy markers noted. No significant changes when compared with prior studies. ASSESSMENT: Negative, BI-RAD 1 RECOMMENDATION: Routine screening mammogram of both breasts in 1 year.
== END | disposition home or self-care (01) ==
LOC: RADMAMWWP 09:17
PROVIDERS: ATTEND Family Medicine
DX: Z12.31 Encounter for screening mammogram for malignant neoplasm of breast (principal)
CPT/HCPCS: 77063; 77067

== ENCOUNTER 2019-05-12 16:06 | Emergency (ER) | payer BC, OTHER ==
[2019-05-12 16:16] VITALS: TEMP 98.1
--- NOTE | 2019-05-12 16:39 | ED ---
Dizziness HPI - General Chief Complaint: Dizziness Stated Complaint: dizziness/racing heart Time Seen by Provider: 05/12/19 16:19 Source: patient, RN notes reviewed, old records reviewed Mode of arrival: ambulatory Limitations: no limitations - History of Present Illness Initial Comments: This is a 44-year-old female here for evaluation dizziness patient states he's had positional of symptomatic dizziness for a few days she's been doing with for some time. Patient states her heart rate goes from 120s down to 60s which she gets off her foot.. Patient denying any pain or shortness of breath the time no diaphoresis. No significant medical she takes no medications no drugs or alcohol abuse. MD Complaint: dizziness -: days(s) Timing: gradual onset, intermittent, waxing/waning Description: lightheadedness History of Same: Yes History of Trauma: No Severity: mild Improves With: remaining still, rest Worsens With: nothing Associated Symptoms: denies other symptoms - Related Data Home Medications Medication Instructions Recorded Confirmed Lansoprazole [Prevacid] 30 mg PO DAILY 03/21/14 06/30/17 Simvastatin [Zocor] 80 mg PO HS 03/21/14 06/30/17 Hydrochlorothiazide [Hydrodiuril] 25 mg PO DAILY 01/18/17 06/30/17 Lisinopril [Zestril] 5 mg PO DAILY 01/18/17 06/30/17 Zolpidem Tartrate [Ambien] 10 mg PO HS 01/18/17 06/30/17 ALPRAZolam [Xanax] 0.25 mg PO DAILY PRN 06/18/17 06/30/17 Nitrofurantoin Monohyd/M-Cryst 100 mg PO Q12HR 06/30/17 06/30/17 [Macrobid] Previous Rx's Medication Instructions Recorded Phenazopyridine [Pyridium] 100 mg PO TID #6 tablet 06/29/17 Allergies Allergy/AdvReac Type Severity Reaction Status Date / Time Sulfa (Sulfonamide Allergy Rash/Hives Verified 05/12/19 16:11 Antibiotics) bupropion HCl AdvReac Altered Verified 05/12/19 16:11 [From Wellbutrin] Mental Status Review of Systems ROS Statement: Those systems with pertinent positive or pertinent negative responses have been documented in the HPI. ROS Other: All systems not noted in ROS Statement are negative. Past Medical History Past Medical History: Cancer, Hyperlipidemia, Hypertension Additional Past Medical History / Comment(s): KIDNEY STONES; breast biopsy bilateral breast benign, renal cancer History of Any Multi-Drug Resistant Organisms: None Reported Past Surgical History: Appendectomy, Section, Hernia Repair, Uterine Ablation Additional Past Surgical History / Comment(s): gastric bypass, (R) ankle ORIF, (R)knee orthroscopy. R partial nephrectomy Past Anesthesia/Blood Transfusion Reactions: Postoperative Nausea & Vomiting (PONV) Past Psychological History: Anxiety, Depression Smoking Status: Former smoker Past Alcohol Use History: Rare Past Drug Use History: None Reported - Past Family History Father Family Medical History: Cancer, Diabetes Mellitus General Exam Limitations: no limitations General appearance: alert, in no apparent distress Head exam: Present: atraumatic, normocephalic, normal inspection Eye exam: Present: normal appearance, PERRL, EOMI. Absent: scleral icterus, conjunctival injection, periorbital swelling ENT exam: Present: normal exam, mucous membranes moist Neck exam: Present: normal inspection. Absent: tenderness, meningismus, lymphadenopathy Respiratory exam: Present: normal lung sounds bilaterally. Absent: respiratory distress, wheezes, rales, rhonchi, stridor Cardiovascular Exam: Present: regular rate, normal rhythm, normal heart sounds. Absent: systolic murmur, diastolic murmur, rubs, gallop, clicks GI/Abdominal exam: Present: soft, normal bowel sounds. Absent: distended, tenderness, guarding, rebound, rigid Extremities exam: Present: normal inspection, full ROM, normal capillary refill. Absent: tenderness, pedal edema, joint swelling, calf tenderness Back exam: Present: normal inspection Neurological exam: Present: alert, oriented X3, CN II-XII intact Psychiatric exam: Present: normal affect, normal mood Skin exam: Present: warm, dry, intact, normal color. Absent: rash Course Vital Signs 05/12/19 05/12/19 05/12/19 16:11 16:31 17:00 Temperature 98.1 F Pulse Rate 89 86 82 Pulse Rate [ Right Sitting] Pulse Rate [ Right Standing] Pulse Rate [ Right Supine] Respiratory 18 20 20 Rate Blood Pressure 149/90 Blood Pressure [Right Arm Sitting] Blood Pressure [Right Arm Standing] Blood Pressure [Right Arm Supine] O2 Sat by Pulse 99 97 Oximetry 05/12/19 05/12/19 18:00 19:18 Temperature Pulse Rate 80 Pulse Rate [ 67 Right Sitting] Pulse Rate [ 75 Right Standing] Pulse Rate [ 74 Right Supine] Respiratory 20 Rate Blood Pressure 131/85 Blood Pressure 129/96 [Right Arm Sitting] Blood Pressure 125/94 [Right Arm Standing] Blood Pressure 133/86 [Right Arm Supine] O2 Sat by Pulse 96 97 Oximetry - Reevaluation(s) Reevaluation #1: 05/12/19 18:04 Medical record is reviewed Reevaluation #2: 05/12/19 19:38 Patient has orthostatic vital signs normal here in the ER Reevaluation #3: 05/12/19 19:38 no chest pain no current symptoms EKG Findings - EKG Comments: EKG Findings:: EKG shows NSR 91 HI 158 QRS 74 QTc 455 Medical Decision Making - Medical Decision Making 44 female here with nonspecific dizziness palpitations and changing heart rate. No findings here in the ER, troponin negative EKG negative patient's asymptomatic. Will follow up with primary care versus cardiology regarding outpatient monitoring. - Lab Data Result diagrams: 05/12/19 17:15 05/12/19 17:15 Lab Results 05/12/19 05/12/19 05/12/19 Range/Units 17:15 17:15 17:15 WBC 8.5 (3.8-10.6) k/uL RBC 4.40 (3.80-5.40) m/uL Hgb 13.5 (11.4-16.0) gm/dL Hct 41.4 (34.0-46.0) % MCV 94.1 (80.0-100.0) fL MCH 30.8 (25.0-35.0) pg MCHC 32.7 (31.0-37.0) g/dL RDW 12.7 (11.5-15.5) % Plt Count 325 (150-450) k/uL Neutrophils % 66 % Lymphocytes % 25 % Monocytes % 6 % Eosinophils % 1 % Basophils % 1 % Neutrophils # 5.6 (1.3-7.7) k/uL Lymphocytes # 2.1 (1.0-4.8) k/uL Monocytes # 0.5 (0-1.0) k/uL Eosinophils # 0.1 (0-0.7) k/uL Basophils # 0.0 (0-0.2) k/uL PT (9.0-12.0) sec INR (<1.2) APTT (22.0-30.0) sec D-Dimer (<0.60) mg/L FEU Sodium 137 (137-145) mmol/L Potassium 4.5 (3.5-5.1) mmol/L Chloride 105 (98-107) mmol/L Carbon Dioxide 24 (22-30) mmol/L Anion Gap 8 mmol/L BUN 21 H (7-17) mg/dL Creatinine 0.93 (0.52-1.04) mg/dL Est GFR (CKD-EPI)AfAm 87 (>60 ml/min/1.73 sqM) Est GFR (CKD-EPI)NonAf 76 (>60 ml/min/1.73 sqM) Glucose 119 H (74-99) mg/dL Calcium 9.4 (8.4-10.2) mg/dL Magnesium 2.0 (1.6-2.3) mg/dL Total Bilirubin 0.4 (0.2-1.3) mg/dL AST 18 (14-36) U/L ALT 9 (4-34) U/L Alkaline Phosphatase 77 (38-126) U/L Troponin I (0.000-0.034) ng/mL NT-Pro-B Natriuret Pep 29 pg/mL Total Protein 6.4 (6.3-8.2) g/dL Albumin 4.0 (3.5-5.0) g/dL Lipase 79 (23-300) U/L 05/12/19 05/12/19 Range/Units 17:15 17:15 WBC (3.8-10.6) k/uL RBC (3.80-5.40) m/uL Hgb (11.4-16.0) gm/dL Hct (34.0-46.0) % MCV (80.0-100.0) fL MCH (25.0-35.0) pg MCHC (31.0-37.0) g/dL RDW (11.5-15.5) % Plt Count (150-450) k/uL Neutrophils % % Lymphocytes % % Monocytes % % Eosinophils % % Basophils % % Neutrophils # (1.3-7.7) k/uL Lymphocytes # (1.0-4.8) k/uL Monocytes # (0-1.0) k/uL Eosinophils # (0-0.7) k/uL Basophils # (0-0.2) k/uL PT 10.5 (9.0-12.0) sec INR 1.0 (<1.2) APTT 24.3 (22.0-30.0) sec D-Dimer 0.34 (<0.60) mg/L FEU Sodium (137-145) mmol/L Potassium (3.5-5.1) mmol/L Chloride (98-107) mmol/L Carbon Dioxide (22-30) mmol/L Anion Gap mmol/L BUN (7-17) mg/dL Creatinine (0.52-1.04) mg/dL Est GFR (CKD-EPI)AfAm (>60 ml/min/1.73 sqM) Est GFR (CKD-EPI)NonAf (>60 ml/min/1.73 sqM) Glucose (74-99) mg/dL Calcium (8.4-10.2) mg/dL Magnesium (1.6-2.3) mg/dL Total Bilirubin (0.2-1.3) mg/dL AST (14-36) U/L ALT (4-34) U/L Alkaline Phosphatase (38-126) U/L Troponin I <0.012 (0.000-0.034) ng/mL NT-Pro-B Natriuret Pep pg/mL Total Protein (6.3-8.2) g/dL Albumin (3.5-5.0) g/dL Lipase (23-300) U/L - Radiology Data Radiology results: report reviewed (Chest x-rays negative for acute disease), image reviewed Disposition Clinical Impression: Dizziness, Palpitations Disposition: HOME SELF-CARE Condition: Good Instructions (If sedation given, give patient instructions): Dizziness (ED), Heart Palpitations (ED) Is patient prescribed a controlled substance at d/c from ED?: No Referrals: Genet Torrez MD [Primary Care Provider] - 1-2 days
[2019-05-12] MEDS ORDERED: SODIUM CHLORIDE 0.9% 1,000 ML IV STA (16:46)
[2019-05-12] MEDS ORDERED: SODIUM CHLORIDE 0.9% 500 ML 500 ML IV STA (16:46)
--- NOTE | 2019-05-12 17:59 | XR ---
EXAMINATION TYPE: XR chest 2V DATE OF EXAM: 05/12/2019 COMPARISON: 01/18/2017 INDICATION: Chest pain short of breath dizzy TECHNIQUE: Frontal and lateral views of the chest are obtained. FINDINGS: The heart size is normal. The pulmonary vasculature is normal. The lungs are clear. IMPRESSION: 1. No acute pulmonary process.
[2019-05-12 18:27] LABS: Basophils % (A) 1 %; Eosinophils # (A) 0.1 k/uL (0-0.7); Eosinophils % (A) 1 %; HCT 41.4 % (34.0-46.0); HGB 13.5 gm/dL (11.4-16.0); Lymphocytes # (A) 2.1 k/uL (1.0-4.8); Lymphocytes % (A) 25 %; MCH 30.8 pg (25.0-35.0); MCHC 32.7 g/dL (31.0-37.0); MCV 94.1 fL (80.0-100.0); Mean Platelet Volume 7.8; Monocytes # (A) 0.5 k/uL (0-1.0); Monocytes % (A) 6 %; Neutrophils # (A) 5.6 k/uL (1.3-7.7); Neutrophils % (A) 66 %; Platelet Count 325 k/uL (150-450); RDW 12.7 % (11.5-15.5); WBC 8.5 k/uL (3.8-10.6)
[2019-05-12 18:43] LABS: Calcium 9.4 mg/dL (8.4-10.2); D-Dimer 0.34 mg/L FEU (<0.60); Partial Thromboplastin Time 24.3 sec (22.0-30.0); Potassium 4.5 mmol/L (3.5-5.1); Prothrombin Time 10.5 sec (9.0-12.0); Total Bilirubin 0.4 mg/dL (0.2-1.3); Total Protein 6.4 g/dL (6.3-8.2)
[2019-05-12 18:52] VITALS: RESP 20
[2019-05-12 19:20] VITALS: BP 133/86; PULSE 74
== END 2019-05-12 20:00 | disposition home or self-care (01) ==
LOC: EC 16:06
DX: R42 Dizziness and giddiness (principal); R00.2 Palpitations; E78.5 Hyperlipidemia, unspecified; I10 Essential (primary) hypertension; F32.9 Major depressive disorder, single episode, unspecified; F41.9 Anxiety disorder, unspecified; Z87.891 Personal history of nicotine dependence; Z88.2 Allergy status to sulfonamides; Z88.8 Allergy status to other drugs, medicaments and biological substances; Z79.899 Other long term (current) drug therapy; Z85.528 Personal history of other malignant neoplasm of kidney; Z90.5 Acquired absence of kidney; Z53.8 Procedure and treatment not carried out for other reasons
CPT/HCPCS: 36415; 71046; 80053; 83690; 83735; 83880; 84484; 85025; 85379; 85610; 85730; 93005; 99284

== ENCOUNTER → 2024-08-03 | Outpatient (CLI) | payer OTHER ==
--- NOTE | 2024-08-04 07:47 | MM ---
Reason for Exam: Screening (asymptomatic). Last mammogram was performed 5 year(s) and 7 month(s) ago. Patient History: Menarche at age 11. First Full-Term at age 20. Postmenopausal. Other cancer, age 42. Hormonal Contraceptives for 3 years from age 16 until age 19. 10/11/2015, Benign Core Biopsy on the right side. 08/31/2013, Benign Core Biopsy on the left side. Sister had breast cancer. Risk Values: Edie 5 year model risk: 3.3%. NCI Lifetime model risk: 26.2%. Prior Study Comparison: 04/13/2016 Right Diagnostic Mammogram, [facility]. 10/02/2016 Bilateral Screening Mammogram, [facility]. 12/30/2018 Bilateral Screening Mammogram, [facility]. Tissue Density: The breasts are heterogeneously dense, which may obscure small masses. Findings: Analyzed By CAD. There is no suspicious group of microcalcifications or new suspicious mass in either breast. Chronic nodularity left breast biopsy. Additional biopsy clip seen in the right breast. Benign calcification is. Overall Assessment: Benign, BI-RAD 2 Management: Screening Mammogram of both breasts in 1 year. . Patient should continue monthly self-breast exams. A clinical breast exam by your physician is recommended on an annual basis. This exam should not preclude additional follow-up of suspicious palpable abnormalities. Note on Edie scores and lifetime risk: 1. A Edie score greater than 3% is considered moderate risk. If this is the case, consider specialist referral to assess eligibility for a risk reducing agent. 2. If overall lifetime risk for the development of breast cancer is 20% or higher, the patient may qualify for future screening with alternating mammogram and breast MRI. [facility], , 08/04/2024 7:44 AM. Electronically signed and approved by: Chapo Daily M.D. Radiologis
== END | disposition home or self-care (01) ==
LOC: RADMAMWWP 16:27
PROVIDERS: ATTEND Family Medicine
DX: Z12.31 Encounter for screening mammogram for malignant neoplasm of breast (principal); R92.333 Mammographic heterogeneous density, bilateral breasts; R92.1 Mammographic calcification found on diagnostic imaging of breast; Z78.0 Asymptomatic menopausal state; Z80.3 Family history of malignant neoplasm of breast; Z92.0 Personal history of contraception
CPT/HCPCS: 77063; 77067